=== PATIENT | male | born 1940 | race Caucasian/White ===

== ENCOUNTER 2020-07-01 16:53 | Emergency (ER) | payer MEDICARE ==
[~2020-07-01] VITALS: Ht 170.2 cm; Wt 72.7 kg
[~2020-07-01 16:53] MED LIST: ALEVE 220MG220 MG PO; NORCO 325 MG-51 TAB PO
[2020-07-01 17:01] VITALS: TEMP 97.8
[2020-07-01 17:49] VITALS: BP 128/73; PULSE 84
== END 2020-07-01 17:49 | disposition home or self-care (01) ==
LOC: COL.ER 16:53
DX: K02.9 Dental caries, unspecified (principal); F17.210 Nicotine dependence, cigarettes, uncomplicated

== ENCOUNTER 2020-10-13 18:04 | Inpatient (IN) | payer MEDICARE ==
[~2020-10-13] VITALS: Ht 167.6 cm; Wt 62.1 kg
[2020-10-13 18:40] LABS: HEMATOCRIT 37.9 % (42.0-52.0); HEMOGLOBIN 11.2 g/dl (13.5-18.0); MEAN CELL VOLUME 96 fl (80.0-100.0); MEAN CORPUSCULAR HEMOGLOBIN 28 pg (27.0-31.0); MEAN CORPUSCULAR HGB CONC 30 g/dl (33.0-37.0); MEAN PLATELET VOLUME 9.2 fl (7.4-10.4); PLATELET COUNT 590 K/mm3 (130-400); RED BLOOD COUNT 3.95 M/mm3 (4.20-5.60); REDCELL DISTRIBUTION WIDTH-CV 17.8 % (11.5-14.5)
[2020-10-13 18:48] LABS: BILIRUBIN,TOTAL 0.5 mg/dL (0.0-1.0); CALCIUM 10.1 mg/dL (8.4-10.2); CREATININE, serum 1.04 (0.66-1.25); POTASSIUM 5.5 mmol/L (3.4-5.0); TOTAL PROTEIN 6.8 gm/dL (6.4-8.2)
[2020-10-13 18:57] LABS: TROPONIN-I 0.023 ng/mL (0.000-0.035)
[2020-10-13 19:16] LABS: LYMPHOCYTE 30 % (20.0-51.0); NEUTROPHILS 70 % (42.0-75.2)
[2020-10-13 19:18] LABS: ANISOCYTOSIS 1+; C-REACTIVE PROTEIN 35.2 mg/dL (0.0-0.9); HYPOCHROMIA 1+; PLATELET ESTIMATE DECREASED (NORMAL); POIKILOCYTOSIS 1+
[2020-10-13 19:19] LABS: OVALOCYTES 1+
[2020-10-14] VITALS: BP 123/84; PULSE 76; TEMP 98.1
--- NOTE | 2020-10-14 00:30 | NUR ---
Vancomycin Initial Dosing Pharmacy Note Ordering provider: Sarah Olivier DO 79 YO M Indication/duration: PNA (7 DAYS) GOAL: 15-20 HX: NONE IDENTIFIED BMI: 19 WT: 53.2 KG SCR: 1.04 EST CRCL ~ 45 ML/MIN T 1/2 ~ 17 H TMAX: 98.6 WBC: 38.4 LA: 3.8 ->2.9 CRP: 35.2 MICRO IN PROCESS NO IMAGING AVAILABLE AT THIS TIME PT LOADED WITH VANCO 1 GM X1 (~19 MG/KG). PT STARTED ON MAINTENANCE REGIMEN OF 750MG Q18H. WILL FOLLOW RENAL FUNCTION, MICRO, AND ABX PLAN FOR NEED TO ADJUST THERAPY. THANK YOU FOR THIS DOSING CONSULT!
--- NOTE | 2020-10-14 00:42 | NUR ---
PT TRANSPORTED TO MEDICAL FLOOR ROOM 311 VIA ED STAFF AT 2345. PT A/OX4, VSS. 02 3L, DENIES PAIN, SOB, PT CLEANED AND CHANGED AND PROVIDED URINAL. NURSE COMPLETED PHYSICAL ASSESMENT. NURSE WILL CONTINUE TO REVIEW POC, AND MONITOR PT. PT EXPRESSES NO ADDITIONAL NEEDS AT THIS TIME. CALL LIGHT WITHIN REACH.
[2020-10-14 01:01] LABS: CALCIUM 10.1 mg/dL (8.4-10.2); CREATININE, serum 1.02 (0.66-1.25); POTASSIUM 5.1 mmol/L (3.4-5.0)
[2020-10-14 01:05] LABS: INR 1.5 (0.8-3.0); PROTHROMBIN TIME 17.2 SECONDS (9.7-12.8)
[2020-10-14 01:08] LABS: PARTIAL THROMBOPLASTIN TIME 29.5 SECONDS (26.0-37.0)
[2020-10-14 01:13] LABS: TROPONIN-I 0.025 ng/mL (0.000-0.035)
[2020-10-14] MEDS ORDERED: TYLENOL 325MG325 MG PO (02:01)
[2020-10-14 04:00] VITALS: BP 113/79; PULSE 96; TEMP 97.6
--- NOTE | 2020-10-14 06:13 | NUR ---
PT A/OX4, CURRENTLY INFUSING HEP GTT AT 950UNITS/HR TO LEFT UPPERARM INT, ANTIBIOTICS CURRENTLY INFUSING TO RIGHT WRIST LINE. PT DENIES PAIN, PT HAS REMAINED AFEBRILE, VSS, URINAL AT BEDSIDE. PT EXPRESSES NO ADDITIONAL NEEDS AT THIS TIME.
--- NOTE | 2020-10-14 07:19 | NUR ---
THIS NURSE CALLED CONSULT FOR PULMONOLOGY WELL CARDIOLOGY, BOTH CONSULTS COMPLETED. THIS NURSE ATTEMPTED TO CALL CONSULT FOR ONCOLOGY AND WAS UNABLE TO GET AHOLD OF PROVIDER. AT 0721 RADIOLOGY CALLED THIS NURSE TO RELAY FRACTURE OF OCCIPITAL RIGHT CONDYLE, RELAYED TO ONCOMING SHIFT.
[2020-10-14 07:27] VITALS: BP 123/80; PULSE 98; TEMP 97.8
--- NOTE | 2020-10-14 07:41 | NUR ---
Nightshift RN received call from CT during report that this patient has a fracture to his right occipital condyle. Provider was notified by radiologist, and visiting housekeeper directed the primary nurse to apply a C-collar. It was applied and patient has been put on bed rest. All assisting staff have been notified not to get the patient out of bed.
--- NOTE | 2020-10-14 11:21 | NUR ---
I met with Beto this morning and helped him call his daughters by phone. He is wearing a neck brace. At that time he was eating breakfast and seemed to be thinking clearly and wanting to get home as soon as was reasonable. Dr Cherry has talked with his daughter Edgar by phone and they are wating comfort care. They are requesting that he be sent home on hospice services and have selected [facility]. I have spoken with Noah @ [facility] and faxed a referral. Carlos had also requested that his daughters be his DPOA-HC but he reported he was too tired to complete the paperwork at this time. We will try again after his nap. I did request that Noah contact the daughters to discuss hospice services.
--- NOTE | 2020-10-14 14:38 | NUR ---
Calender Let Off Helper stopped by, patient was sleeping. Calender Let Off Helper prayed for patient outside their door.
--- NOTE | 2020-10-14 15:58 | NUR ---
Patient has been resting all day. Family came and spent a bit of time with him and spoke with someone from [facility]. The plan is to send the patient home tomorrow w/ hospice.
--- NOTE | 2020-10-14 16:44 | NUR ---
Photography Professor attended clinical rounds with the team and palliative consult ordered. CRYSTAL contacted patient's daughter, Zack (ph#[phone]) who advised she is hopeful that patient will update his DPOA-HC while in the hospital as he is from his , [place] (ph#[phone]). Zack advised that patient lives here in [place] with his other daughter, Amilcar (ph#[phone]). Zack advised that as far as she knows, patient does not have a primary care physician. CRYSTAL advised Zack that for the time being, until DPOA-HC is updated, Roseline would be legal next of kin. Zack verbalized understanding. CRYSTAL collaborated with Swapna, Palliative RN who advised she met with patient and also spoke with patient's daughters. Plan will be to go home on hospice. A referral was sent to [facility] and [facility] with [facility] advised that they can admit patient tomorrow morning. CRYSTAL and Swapna followed up with patient to discuss DPOA-HC. Patient states he does not feel like doing paperwork at this time and would like to rest. Discharge Plan: Home with [facility] tomorrow.
--- NOTE | 2020-10-15 06:01 | NUR ---
PT RESTED MAJORITY OF THE NIGHT, THIS NURSE ATTEMPTED MULTIPLE TIMES TO HAVE PT EAT, PT REFUSED. PT CONTINUES TO OBEY COMMANDS AND VERBALLY RESPOND TO NURSE. PT CLEAN, DRIED AND REPOSITIONED, NECK COLLAR BRACE REMAINS ON. EXTERNAL JOHN CATHETER PLACED, PT EXPRESSES NO ADDITIONAL NEEDS AT THIS TIME. CALL LIGHT WITHIN REACH.
[2020-10-15] MEDS ORDERED: FLEET ENEM1 BOT/133 RC (08:36)
[2020-10-15] MEDS ORDERED: DULCOLAX S10 MG/SUPP RC (08:36)
[2020-10-15] MEDS ORDERED: ATIVAN 1MG T1 MG/TAB PO (08:37)
[2020-10-15] MEDS ORDERED: TRANSDERM-0.5 MG/21 TD (08:37)
[2020-10-15] MEDS ORDERED: SYSTANE 0.3-0.1 EACH OP (08:37)
[2020-10-15] MEDS ORDERED: ROXANOL 20MG20 MG/ML SL (08:37)
[2020-10-15] MEDS ORDERED: ZOFRAN ODT4 MG PO (08:37)
[2020-10-15] MEDS ORDERED: PROAIR HFA0.09 MG/AC IH (08:37)
[2020-10-15] MEDS ORDERED: OXYGEN (08:40)
--- NOTE | 2020-10-15 08:49 | NUR ---
PT AT RREST ON ROOM AIR. SOMEWHAT AGITATED AND NOT VERY RESPONSIVE. SPO2 88 ON 3.5 LPM. TURNED UP TO 5 LPM SPO2 91%
--- NOTE | 2020-10-15 09:55 | NUR ---
The patient to tentatively discharge home today, 10/15 with [facility]. [facility] will transport at approximately 10:30 am. Plumbing Foreman faxed discharge orders and scripts to Noah with [facility]. CRYSTAL and Swapna Rogers Palliative Care Nurse met with the patient to discuss DPOA-HC form. The patient was not interested in completing the form at this time. SW to send the DPOA-HC form home. CRYSTAL informed Mac regarding the DPOA-HC information. There are no additional needs at this time.
--- NOTE | 2020-10-15 10:24 | NUR ---
Patient is going home on hospice. IV access has been discontinued. Patient was given PRN Roxanol for pain. Dentures were removed from patient's mouth as they were falling out, they were rinsed and placed in a cup. External male catheter was pulled off by the patient. This RN attempted to give the patient something to drink and he was refusing. Family is in the room now waiting for EMS to arrive and take the patient home.
--- NOTE | 2020-10-15 11:00 | NUR ---
Two daughters are at bedside, Amilcar and Vamsi. They requested to try to get DPOA-HC paperwork completed. Form was provided to them and they were assisted in filling in the form with information but pt was too tired to sign form and it was sent with the two daughters. They report that his would be his next of kin but they are seperated. The daughters and are in agreement about care. Comfort quilt was provided.
== END 2020-10-15 11:00 | disposition hospice, home (50) | DRG 871 ==
LOC: COL.ER 18:04 → MEDICAL 21:48
PROVIDERS: Nurse Practitioner; Nurse Practitioner Family
DX: A41.9 Sepsis, unspecified organism (principal); J96.01 Acute respiratory failure with hypoxia; I26.99 Other pulmonary embolism without acute cor pulmonale; J18.9 Pneumonia, unspecified organism; I31.3 Pericardial effusion (noninflammatory); E46 Unspecified protein-calorie malnutrition; C38.3 Malignant neoplasm of mediastinum, part unspecified; E87.1 Hypo-osmolality and hyponatremia; R65.20 Severe sepsis without septic shock; J43.2 Centrilobular emphysema; Z51.5 Encounter for palliative care; Z66 Do not resuscitate; I71.4 Abdominal aortic aneurysm, without rupture; E87.5 Hyperkalemia; R53.81 Other malaise; E86.0 Dehydration; D64.9 Anemia, unspecified; M85.80 Other specified disorders of bone density and structure, unspecified site; D47.3 Essential (hemorrhagic) thrombocythemia; M19.90 Unspecified osteoarthritis, unspecified site
CPT/HCPCS: 99223-AI; 99233-AI; 99239; J0456; J0692; J1644; J2270; J3370; J7030; J7050; J7120; Q9967